=== PATIENT | male | born 1975 | race Caucasian/White ===

== ENCOUNTER 2018-09-05 00:58 | Emergency (ER) | payer BC ==
[~2018-09-05] VITALS: Ht 193 cm; Wt 83.9 kg
[2018-09-05] MEDS ORDERED: NORVASC5 MG (01:32)
[2018-09-05] MEDS ORDERED: HYDROCHLOROTHIA25 MG PO (07:47)
== END 2018-09-05 07:58 | disposition home or self-care (01) ==
LOC: ER 00:58
DX: I16.0 Hypertensive urgency (principal); I10 Essential (primary) hypertension